=== PATIENT | female | born 1985 | race Caucasian/White ===

== ENCOUNTER 2020-12-15 08:59 | Outpatient (CLI) | payer BC | END 2020-12-15 09:00 | disposition home or self-care (01) | LOC: CSHULT 08:59 | PROVIDERS: ATTEND Family Medicine | DX: N63.15 Unspecified lump in the right breast, overlapping quadrants (principal) ==

== ENCOUNTER 2021-04-18 12:12 | Outpatient (CLI) | payer BC | END 2021-04-18 12:13 | disposition home or self-care (01) | LOC: CSHCT 12:12 | PROVIDERS: ATTEND Otolaryngology Otolaryngic Allergy | DX: K11.20 Sialoadenitis, unspecified (principal) | CPT/HCPCS: 70491 ==

== ENCOUNTER 2021-12-11 17:19 | Emergency (ER) | payer BC | END 2021-12-11 18:25 | disposition home or self-care (01) | LOC: CSHERS 17:19 | DX: U07.1 COVID-19 (principal); K21.9 Gastro-esophageal reflux disease without esophagitis | CPT/HCPCS: 99283 ==

== ENCOUNTER 2022-02-16 15:41 | Emergency (ER) | payer BC | END 2022-02-16 16:37 | disposition home or self-care (01) | LOC: CSHERS 15:41 | DX: J10.1 Influenza due to other identified influenza virus with other respiratory manifestations (principal) | CPT/HCPCS: 87804; 99284 ==

== ENCOUNTER 2022-03-08 09:02 | Outpatient (CLI) | payer BC | END 2022-03-08 09:03 | disposition home or self-care (01) | LOC: CSHRAD 09:02 | PROVIDERS: ATTEND Internal Medicine | DX: R07.81 Pleurodynia (principal) | CPT/HCPCS: 71046 ==

== ENCOUNTER 2022-05-14 14:14 | Outpatient (CLI) | payer BC ==
[~2022-05-14 14:14] MED LIST: Magnevist 469MG/ML 20 ML VIAL ONE
== END 2022-05-14 14:15 | disposition home or self-care (01) ==
LOC: CSHMRI 14:14
PROVIDERS: ATTEND Physician Assistant Medical
DX: R10.32 Left lower quadrant pain (principal); G89.29 Other chronic pain
CPT/HCPCS: 72197; 74183

== ENCOUNTER 2023-03-04 18:07 | Emergency (ER) | payer BC | END 2023-03-04 19:53 | disposition home or self-care (01) | LOC: CSHERS 18:07 | DX: N61.0 Mastitis without abscess (principal) | CPT/HCPCS: 99283 ==